=== PATIENT | female | born 1985 | race African-American/Black ===

== ENCOUNTER 2019-03-31 15:49 | Emergency (ER) | payer OTHER ==
[2019-03-31 16:00] VITALS: BP 127/92; PULSE 87; TEMP 98.2; BMI 29.8
--- NOTE | 2019-03-31 16:06 | PDOC ---
Rapid Medical Evaluation Medical Evaluation: 03/31/19 15:54 I have performed a brief in-person evaluation of this patient. The patient presents with a chief complaint of:toe pain Pertinent physical exam findings:defer to ED I have ordered the following:nothing The patient will proceed to the ED for further evaluation. Discharge Disposition - Diagnosis Toe pain Qualifiers: Laterality: unspecified laterality Qualified Code(s): M79.676 - Pain in unspecified toe(s) - Referrals - Patient Instructions - Post Discharge Activity
--- NOTE | 2019-03-31 17:06 | PDOC ---
History of Present Illness - General Chief Complaint: Pain Stated Complaint: RT. TOE PAIN Time Seen by Provider: 03/31/19 16:00 - History of Present Illness Initial Comments: 03/31/19 17:04 33-year-old female without comorbidities presents for evaluation of right great toe pain x2 weeks increasing in severity today she gets frequent manicures about every 3 weeks she has no systemic symptoms Past History - Past Medical History Allergies/Adverse Reactions: Allergies Allergy/AdvReac Type Severity Reaction Status Date / Time No Known Allergies Allergy Verified 03/31/19 16:00 Home Medications: Ambulatory Orders Sulfamethoxazole/Trimethoprim [Bactrim Ds -] 1 tab PO BID #14 tablet 03/31/19 COPD: No - Psycho Social/Smoking Cessation Hx Smoking History: Never smoked Have you smoked in the past 12 months: No Information on smoking cessation initiated: No Hx Alcohol Use: No Drug/Substance Use Hx: No Review of Systems - Review of Systems Musculoskeletal: Yes: See HPI, Joint Pain *Physical Exam - Vital Signs Last Vital Signs Temp Pulse Resp BP Pulse Ox 98.2 F 87 18 127/92 100 03/31/19 15:59 03/31/19 15:59 03/31/19 15:59 03/31/19 15:59 03/31/19 15:59 - Physical Exam Comments: 03/31/19 17:04 Right great toe is mildly erythemic and warm without induration or areas of fluctuance. There is erythema surrounding the proximal nail fold extending into the skin it does not extend proximally past the IPJ. There is no pain with passive motion of the IPJ. Mild discoloration of the nail. No gross sensorimotor deficits neurovascular intact Medical Decision Making - Medical Decision Making 03/31/19 17:05 Patient has an allergy to penicillin I will treated with Bactrim and have a follow-up with podiatry for right great toe cellulitis Discharge - Discharge Information Problems reviewed: Yes Clinical Impression/Diagnosis: Cellulitis of toe of right foot Toe pain Qualifiers: Laterality: unspecified laterality Qualified Code(s): M79.676 - Pain in unspecified toe(s) Condition: Stable Disposition: HOME - Admission No - Additional Discharge Information Prescriptions: Sulfamethoxazole/Trimethoprim [Bactrim Ds -] 1 tab PO BID #14 tablet - Follow up/Referral Referrals: Dutch Saucedo [Primary Care Provider] - Christo Johnson MD [Non Staff, Medical] - - Patient Discharge Instructions Additional Instructions: Please take the antibiotics as directed. Tylenol Motrin as directed for pain. Return to the emergency room for worsening symptoms. Without fail, please follow-up with podiatry in 1 to 2 days for further evaluation and treatment options. - Post Discharge Activity
== END 2019-03-31 17:55 | disposition home or self-care (01) ==
LOC: JERFT 15:49
DX: L03.031 Cellulitis of right toe (principal); Z88.0 Allergy status to penicillin
CPT/HCPCS: 99281-25